=== PATIENT | male | born 1985 | race Caucasian/White ===

== ENCOUNTER 2024-04-29 23:14 | Emergency (ER) | payer OTHER ==
[2024-04-29 23:39] VITALS: BMI 43.8
[2024-04-30 02:36] LABS: BASO % 0.2 % (0-2.0); EOS % 2.5 % (0-4.5); HEMATOCRIT 41.8 % (35.4-49); HEMOGLOBIN 14.3 GM/dL (11.7-16.9); LYMPH % 14.6 % (8-40); MCHC 34.2 g/dl (32.0-35.9); MEAN CELL VOLUME 81.8 fl (80-96); MEAN PLT VOLUME 7.6 fl (7.5-11.1); NEUT % 75.7 % (42.8-82.8); PLATELET COUNT 315 10^3/uL (134-434); RBC 5.11 M/mm3 (4.00-5.60); RDW 13.7 % (11.9-15.9); WHITE BLOOD COUNT 9.9 K/mm3 (4.0-10.0)
[2024-04-30 02:58] LABS: ALBUMIN 3.8 g/dl (3.4-5.0); CALCIUM 9.6 mg/dL (8.5-10.1)
[2024-04-30 03:02] LABS: CREATININE 0.9 mg/dL (0.55-1.3); TOT PROT 7.2 g/dl (6.4-8.2)
[2024-04-30 03:03] LABS: INR 0.94 (0.83-1.09); PROTHROMBIN TIME (PATIENT) 10.6 SEC (9.7-13.0)
[2024-04-30 03:05] LABS: VENOUS BASE EXCESS -1.1 mmol/L (-2-2); VENOUS O2 SATURATION 68.5 % (70-80); VENOUS PCO2 47.5 mmHg (38-52); VENOUS PH 7.342 (7.310-7.410)
[2024-04-30 03:06] LABS: ACTIVATED PTT 30.3 SECONDS (25.2-36.5)
[2024-04-30 06:52] VITALS: BP 113/65; PULSE 81; RESP 12; TEMP 98.5
[2024-04-30 08:31] LABS: PH,URINE 5.5 (5.0-8.0); URINE APPEARANCE CLEAR; URINE BILIRUBIN NEGATIVE (NEGATIVE); URINE COLOR YELLOW; URINE GLUCOSE (UA) 3+ (NEGATIVE); URINE KETONE TRACE (NEGATIVE); URINE LEUK ESTERASE NEGATIVE (NEGATIVE); URINE NITRITE NEGATIVE (NEGATIVE); URINE PROTEIN NEGATIVE (NEGATIVE)
[2024-04-30] MEDS ORDERED: cefTRIAXone SODIUM 1 GM VIAL ONE (10:49)
[2024-04-30] MEDS ORDERED: LIDOCAINE HCL/PF 1% SDV 5ML VIAL ONE (10:51)
== END 2024-04-30 12:03 | disposition home or self-care (01) ==
LOC: JER 23:14
DX: R73.9 Hyperglycemia, unspecified (principal); R41.0 Disorientation, unspecified; K62.89 Other specified diseases of anus and rectum; N45.3 Epididymo-orchitis; N45.4 Abscess of epididymis or testis; Z91.148 Patient's other noncompliance with medication regimen for other reason; Z20.822 Contact with and (suspected) exposure to COVID-19
CPT/HCPCS: 0241U-QW; 36415; 70450-TC; 71046-TC-FY; 76870-TC; 80053; 81003; 82010; 82803; 83690; 83735; 84484; 85025; 85610; 85730; 87086; 93005; 93010; 93970-TC; 99285-25